=== PATIENT | male | born 1950 | race Caucasian/White ===

== ENCOUNTER 2020-10-12 08:09 | Day surgery (SDC) | payer OTHER ==
[~2020-10-12] VITALS: Ht 177.8 cm; Wt 87.0 kg
[~2020-10-12 08:09] MED LIST: ALBU90OI INH; EUTHYROX100 MCG PO; FLUT1DIS2 INH; HYDROCORTISON28.4 G4 TOP; LISI20 PO; Loratadine10 MG PO; OMEP20ER PO
[2020-10-12] MEDS ORDERED: IRON18 MG PO (11:30)
== END 2020-10-12 12:39 | disposition home or self-care (01) ==
LOC: ORSCSDS 08:09
PROVIDERS: Internal Medicine Gastroenterology
PROC: 0DB58ZX Excision of Esophagus, Via Natural or Artificial Opening Endoscopic, Diagnostic (ICD-10-PCS; principal; 2020-10-12 09:30)
PROC: 0DB78ZX Excision of Stomach, Pylorus, Via Natural or Artificial Opening Endoscopic, Diagnostic (ICD-10-PCS; principal; 2020-10-12 09:30)
DX: K22.10 Ulcer of esophagus without bleeding (principal); K22.70 Barrett's esophagus without dysplasia; K29.70 Gastritis, unspecified, without bleeding; K44.9 Diaphragmatic hernia without obstruction or gangrene; D50.0 Iron deficiency anemia secondary to blood loss (chronic); I10 Essential (primary) hypertension; J44.9 Chronic obstructive pulmonary disease, unspecified; Z87.891 Personal history of nicotine dependence; Z79.899 Other long term (current) drug therapy
CPT/HCPCS: 88305; 88313; 88342; J2704; J7120

== ENCOUNTER → 2023-08-01 | Outpatient (CLI) | payer OTHER ==
[~2023-08-01] MED LIST changes: +IRON18 MG PO
[2023-08-01 19:57] LABS: Alanine Aminotransfer (ALT/SGP 19 U/L (12-78); Albumin, Blood 3.6 g/dL (3.4-5.0); Albumin/Globulin Ratio 1.1 (0.8-1.8); Alk Phos 90 U/L (50-136); Anion Gap 6 mmol/L (6-16); Aspartate Aminotrans (AST/SGOT 22 U/L (12-37); Blood Urea Nitrogen 16 mg/dL (8-24); Bun/Creatinine Ratio 13.2 (12.0-20.0); CO2, Blood 30 mmol/L (21-32); Calcium, Blood 8.8 mg/dL (8.5-10.1); Chloride, Blood 97 mmol/L (98-108); Cholesterol 169 mg/dL (50-200); Creatinine, Blood 1.21 mg/dL (0.60-1.20); Ferritin, Serum 34 ng/mL (26-388); Free Thyroxine 1.53 ng/dL (0.70-1.60); Globulin, Blood 3.4 g/dL (2.2-4.0); Glomerular Filtration Rate 64 (60-); Glucose, Blood 99 mg/dL (70-99); HDL Cholesterol 83 mg/dL (>39); LDL/HDL RATIO 0.8; Low Density Lipoprotein Chol 69 mg/dL (0-110); Potassium, Blood 4.1 mmol/L (3.5-5.5); Sodium, Blood 133 mmol/L (136-145); Triglycerides 87 mg/dL (30-160); Very Low Density Lipoprot Chol 17 mg/dL (6-32)
[2023-08-01 20:01] LABS: Thyroid Stimulating Hormone 0.659 uIU/mL (0.360-4.800)
== END | disposition home or self-care (01) ==
LOC: LAB SHORT 18:14 → LAB 18:14
PROVIDERS: Nurse Practitioner Family
DX: I10 Essential (primary) hypertension (principal); E03.9 Hypothyroidism, unspecified; D50.9 Iron deficiency anemia, unspecified
CPT/HCPCS: 80053; 80061; 82728; 84439; 84443

== ENCOUNTER → 2024-01-15 | Outpatient (CLI) | payer OTHER | END | disposition home or self-care (01) | LOC: LAB SHORT 11:04 → LAB 11:04 | DX: L08.0 Pyoderma (principal) | CPT/HCPCS: 87070; 87077; 87147; 87186; 87205 ==

== ENCOUNTER 2024-06-17 13:29 | Observation (INO) | payer OTHER ==
[~2024-06-17] VITALS: Ht 177.8 cm; Wt 79.8 kg
[2024-06-17] MEDS ORDERED: NS 1,000 ML IV SCH ×3 (14:05→18:15)
[2024-06-17 14:08] LABS: BASOPHILS ABSOLUTE AUTO 0.09 K/mm3 (0.00-0.23); BASOPHILS PERCENT AUTO 2 % (0-2); EOSINOPHILS ABSOLUTE AUTO 0.36 K/mm3 (0.00-0.68); EOSINOPHILS PERCENT AUTO 10 % (0-6); Hematocrit 36.8 % (37.0-53.0); Hemoglobin 11.3 g/dL (13.5-17.5); IMMATURE GRAN ABSOLUTE AUTO 0.04 K/mm3 (0.00-0.10); IMMATURE GRAN PERCENT AUTO 1 % (0-1); LYMPHOCYTES PERCENT AUTO 19 % (21-46); MONOCYTES ABSOLUTE AUTO 1.13 K/mm3 (0.16-1.47); MONOCYTES PERCENT AUTO 30 % (4-13); Mean Corpuscular HGB 24.4 pg (26.0-34.0); Mean Corpuscular HGB Conc 30.7 g/dL (31.5-36.5); Mean Corpuscular Volume 80 fL (80-100); Mean Platelet Volume 10.2 fL (9.1-12.4); NEUTROPHILS ABSOLUTE AUTO 1.42 K/mm3 (1.96-9.15); NEUTROPHILS PERCENT AUTO 38 % (41-73); Platelet Count 279 K/mm3 (150-400); RDW Coefficient Variation 17.1 % (11.7-14.2); RDW Standard Deviation 49.5 fL (35.1-46.3); Red Blood Cell Count 4.63 M/mm3 (4.30-5.90); White Blood Cell Count 3.74 K/mm3 (4.00-11.30)
[2024-06-17 14:24] LABS: Albumin, Blood 4.1 g/dL (3.4-5.0); Albumin/Globulin Ratio 1.1 (0.8-1.8); Bilirubin, Total 1.4 mg/dL (0.1-1.0); Bun/Creatinine Ratio 15.5 (12.0-20.0); Calcium, Blood 9.4 mg/dL (8.5-10.1); Creatinine, Blood 1.74 mg/dL (0.60-1.20); Globulin, Blood 3.8 g/dL (2.2-4.0); Magnesium, Blood 1.7 mg/dL (1.6-2.4); Potassium, Blood 4.4 mmol/L (3.5-5.5); Total Protein, Blood 7.9 g/dL (6.4-8.2)
[2024-06-17] MEDS ORDERED: WIXELA 100-501 EAC1 IH (14:41)
[2024-06-17] MEDS ORDERED: LEVOTHYROXINE112 M18 PO (14:41)
[2024-06-17] MEDS ORDERED: LISINOPRIL-HCT1 EACH PO (14:42)
[2024-06-17] MEDS ORDERED: Aspirin 81 MG Chew PO ONE (17:00)
[2024-06-17] MEDS ORDERED: Albuterol 2.5 MG/3 ML VIAL INH PRN (18:20)
[2024-06-17] MEDS ORDERED: FLU VACC TS2024-25(6MOS UP)/PF 45 MCG/0.5 ML SYRINGE IM ONE (18:20)
[2024-06-17] MEDS ORDERED: NS 1,000 ML IV ONE (18:24)
[2024-06-17] MEDS ORDERED: Mometasone/Formoterol MDI 100/5 mcg 13 GM INH SCH (18:30)
[2024-06-17 19:17] LABS: Source, Urine Clean Catch
[2024-06-17 19:31] LABS: Appearance, Urine Clear (Clear); Bilirubin, Urine Neg (Neg); Blood, Urine 1+ (Neg); Color, Urine Yellow (P-Yellow); Glucose Qualitative, Urine Neg (Neg); Ketones, Urine Neg (Neg); Leukocyte Esterase, Urine Neg (Neg); Nitrite, Urine Neg (Neg); Protein, Urine 2+ (Neg); Urobilinogen, Urine NORM (Normal)
[2024-06-17 19:43] LABS: Bacteria Rare /hpf; Red Blood Cells, Urine 0-2 /hpf (0-2); Squamous Epithelial Cells Not Seen /hpf (Few); White Blood Cells, Urine 0-2 /hpf (0-5)
[2024-06-17 21:08] VITALS: BP 168/100
[2024-06-18 04:24] VITALS: BP 166/91
[2024-06-18 04:49] LABS: BASOPHILS ABSOLUTE AUTO 0.09 K/mm3 (0.00-0.23); BASOPHILS PERCENT AUTO 3 % (0-2); EOSINOPHILS ABSOLUTE AUTO 0.37 K/mm3 (0.00-0.68); EOSINOPHILS PERCENT AUTO 13 % (0-6); Hematocrit 30.2 % (37.0-53.0); Hemoglobin 9.3 g/dL (13.5-17.5); IMMATURE GRAN ABSOLUTE AUTO 0.01 K/mm3 (0.00-0.10); IMMATURE GRAN PERCENT AUTO 0 % (0-1); LYMPHOCYTES ABSOLUTE AUTO 0.74 K/mm3 (0.84-5.20); LYMPHOCYTES PERCENT AUTO 26 % (21-46); MONOCYTES ABSOLUTE AUTO 0.74 K/mm3 (0.16-1.47); MONOCYTES PERCENT AUTO 26 % (4-13); Mean Corpuscular HGB 24.6 pg (26.0-34.0); Mean Corpuscular HGB Conc 30.8 g/dL (31.5-36.5); Mean Corpuscular Volume 80 fL (80-100); Mean Platelet Volume 10.1 fL (9.1-12.4); NEUTROPHILS PERCENT AUTO 31 % (41-73); Platelet Count 216 K/mm3 (150-400); RDW Standard Deviation 48.9 fL (35.1-46.3); Red Blood Cell Count 3.78 M/mm3 (4.30-5.90); White Blood Cell Count 2.85 K/mm3 (4.00-11.30)
[2024-06-18 05:04] LABS: Bun/Creatinine Ratio 19.2 (12.0-20.0); Calcium, Blood 8.3 mg/dL (8.5-10.1); Creatinine, Blood 1.25 mg/dL (0.60-1.20); Magnesium, Blood 1.3 mg/dL (1.6-2.4); Potassium, Blood 4.1 mmol/L (3.5-5.5)
--- NOTE | 2024-06-18 05:12 | NUR ---
MECHANIC'S ASSISTANT SUMMARY PT HAS HAD NO DIZZINESS SINCE ADMISSION FROM ER. HE SAYS HE DRINKS "A COUPLE DRINKS" EVERY NIGHT BEFORE BED (ALCOHOLIC DRINKS) AND IS NOT GOOD ABOUT DRINKING WATER DURING THE DAY. HE ALSO TAKES A DIURETIC AT HOME. HE SAYS HE WAS HARDLY MAKING ANY URINE AT HOME. SINCE RECEIVING IVF HE IS MAKING PLENTY OF LIGHT URINE.
[2024-06-18 05:16] LABS: BAND PERCENT MAN 1 % (0-8); BASOPHILS ABSOLUTE MAN 0.02 K/mm3 (0.00-0.23); BASOPHILS PERCENT MAN 1 % (0-2); EOSINOPHILS ABSOLUTE MAN 0.48 K/mm3 (0.00-0.68); EOSINOPHILS PERCENT MAN 17 % (0-6); LYMPHOCYTES % ATYPICAL MANUAL 2 % (0-0); LYMPHOCYTES ABSOLUTE MAN 0.88 K/mm3 (0.84-5.20); LYMPHOCYTES PERCENT MAN 29 % (21-46); MONOCYTES ABSOLUTE MAN 0.62 K/mm3 (0.16-1.47); MONOCYTES PERCENT MAN 22 % (4-13); NEUTROPHILS ABSOLUTE MAN 0.82 K/mm3 (1.96-9.15); SEG NEUTROPHILS PERCENT MAN 28 % (41-73); TOTAL CELLS COUNTED 100
[2024-06-18] MEDS ORDERED: Levothyroxine Sodium 0.112 MG Tab PO SCH (06:00)
[2024-06-18] MEDS ORDERED: Omeprazole 20 MG CapCR PO SCH (07:30)
[2024-06-18 07:39] VITALS: BP 179/98
[2024-06-18] MEDS ORDERED: Mag Sulfate 1 GM/D5% 100ML 100 ML IV STA (08:00)
[2024-06-18] MEDS ORDERED: AmLODIPine Besylate 5 MG Tab PO SCH (09:00)
[2024-06-18] MEDS ORDERED: Heparin Sodium,Porcine 5,000 UNIT/0.5 ML SDV SC SCH (09:00)
--- NOTE | 2024-06-18 09:21 | NUR ---
CALL FROM TELEMETRY; PT TACHED TO 170. THIS RN TO ROOM; NO ACTIVITY AT THE TIME. RADIAL PULSE 76.
[2024-06-18] MEDS ORDERED: Metoprolol Succinate 25 MG TABCR PO SCH (12:00)
[2024-06-18] MEDS ORDERED: Metoprolol Tartrate 25 MG Tab PO SCH (12:00)
[2024-06-18 12:30] LABS: Thyroid Stimulating Hormone 1.26 uIU/mL (0.360-4.800); Thyroxine (T4) 9.2 ug/dL (4.5-12.1)
--- NOTE | 2024-06-18 12:32 | NUR ---
SPOKE WITH [facility]; SOMEONE WILL BE HERE TO APPLY ZIO PATCH IN NEXT 20 MINUTES.
[2024-06-18] MEDS ORDERED: LISI20 PO (12:57)
[2024-06-18] MEDS ORDERED: 1/2 NS 250ml250 ML (12:58)
[2024-06-18] MEDS ORDERED: MAGNESIUM OXID500 MG PO (12:58)
[2024-06-18] MEDS ORDERED: METO25ER PO (12:58)
[2024-06-18 13:34] VITALS: BP 147/82
--- NOTE | 2024-06-18 17:15 | NUR ---
DISCHARGE/SHIFT SUMMARY: A&Ox4. PLEASANT AND COOPERATIVE WITH CARE. CALLS APPROPRIATELY AND IS ABLE TO ADVOCATE NEEDS EFFECTIVELY. AMBULATES WITH SBA WITHIN ROOM FOR LINE MANAGEMENT; INDEPENDENT AT BASELINE. CONTINENT OF BOWEL AND BLADDER. LBM 06/17/24. MEDS WHOLE WITH FLUIDS. TELE SINUS TACH WITH SUSTAINED EPISODE IN 170s DURING WHICH HE DENIES HAVING MADE ANY SIGNIFICANT MOVEMENTS. NO C/O PAIN OR DISCOMFORT. IV REMOVED BY THIS RN. ZIO PATCH APPLIED BY [facility]. INSTRUCTIONS TO FOLLOW-UP WITH PCP AND CARDIOLOGY. PATIENT SELF-AMBULATED FROM FLOOR WITH ALL BELONGINGS AND DISCHARGE PACKET AT 1345.
[2024-06-22 17:50] LABS: ALBUMIN 3.63 g/dL (3.75-5.01); BETA GLOBULIN 0.92 g/dL (0.48-1.10); GAMMA 0.76 g/dL (0.62-1.51); IMMUNOFIXATION REFLEX Not Done; TOTAL PROTEIN,SERUM 6.2 g/dL (6.3-8.2)
== END 2024-06-18 14:14 | disposition home or self-care (01) ==
LOC: ER 13:29 → MEDS 13:30 → ENPENDDIS 06-18 11:56 → MEDS 06-18 14:14
PROVIDERS: Internal Medicine; Nurse Practitioner Acute Care; Physician Assistant; ADMIT Internal Medicine
DX: N17.9 Acute kidney failure, unspecified (principal); R79.89 Other specified abnormal findings of blood chemistry; I10 Essential (primary) hypertension; E03.9 Hypothyroidism, unspecified; K21.9 Gastro-esophageal reflux disease without esophagitis; J45.909 Unspecified asthma, uncomplicated; K22.70 Barrett's esophagus without dysplasia; Z79.890 Hormone replacement therapy; Z79.899 Other long term (current) drug therapy
CPT/HCPCS: 36415; 51798; 71045; 76770; 80048; 80053; 81001; 82784; 83521; 83735; 84155; 84165; 84436; 84443; 84484; 85025; 85379; 86334; 93005; 93010; 93246; 94760; 96360; 96361; 96365; 96372; 99285-25; A9270; G0378; J1644; J3475; J7030

== ENCOUNTER → 2024-06-29 | Outpatient (CLI) | payer OTHER ==
[~2024-06-29] MED LIST changes: +1/2 NS 250ml250 ML; +LEVOTHYROXINE112 M18 PO; +LISINOPRIL-HCT1 EACH PO; +MAGNESIUM OXID500 MG PO; +METO25ER PO; +WIXELA 100-501 EAC1 IH
[2024-06-29 17:40] LABS: BASOPHILS ABSOLUTE AUTO 0.07 K/mm3 (0.00-0.23); BASOPHILS PERCENT AUTO 2 % (0-2); EOSINOPHILS PERCENT AUTO 8 % (0-6); Hematocrit 32.7 % (37.0-53.0); IMMATURE GRAN ABSOLUTE AUTO 0.02 K/mm3 (0.00-0.10); IMMATURE GRAN PERCENT AUTO 1 % (0-1); LYMPHOCYTES ABSOLUTE AUTO 0.58 K/mm3 (0.84-5.20); LYMPHOCYTES PERCENT AUTO 16 % (21-46); MONOCYTES ABSOLUTE AUTO 1.12 K/mm3 (0.16-1.47); MONOCYTES PERCENT AUTO 30 % (4-13); Mean Corpuscular HGB Conc 30.6 g/dL (31.5-36.5); Mean Corpuscular Volume 78 fL (80-100); Mean Platelet Volume 10.8 fL (9.1-12.4); NEUTROPHILS ABSOLUTE AUTO 1.66 K/mm3 (1.96-9.15); NEUTROPHILS PERCENT AUTO 44 % (41-73); Platelet Count 274 K/mm3 (150-400); RDW Coefficient Variation 16.7 % (11.7-14.2); RDW Standard Deviation 47.9 fL (35.1-46.3); Red Blood Cell Count 4.17 M/mm3 (4.30-5.90); White Blood Cell Count 3.75 K/mm3 (4.00-11.30)
[2024-06-29 21:16] LABS: Albumin, Blood 3.7 g/dL (3.4-5.0); Albumin/Globulin Ratio 1.1 (0.8-1.8); Bun/Creatinine Ratio 22.5 (12.0-20.0); Calcium, Blood 8.9 mg/dL (8.5-10.1); Creatinine, Blood 1.02 mg/dL (0.60-1.20); Globulin, Blood 3.5 g/dL (2.2-4.0); Magnesium, Blood 1.8 mg/dL (1.6-2.4); Percent Saturation 5.6 % (20.0-50.0); Total Protein, Blood 7.2 g/dL (6.4-8.2)
== END | disposition home or self-care (01) ==
LOC: LAB SHORT 16:54 → LAB 16:54
PROVIDERS: Nurse Practitioner Family
DX: N17.9 Acute kidney failure, unspecified (principal); D64.9 Anemia, unspecified; E83.42 Hypomagnesemia
CPT/HCPCS: 80053; 82728; 83540; 83550; 83735; 85025

== ENCOUNTER → 2025-08-12 | Outpatient (CLI) | payer OTHER ==
[2025-08-12 19:06] LABS: Thyroid Stimulating Hormone 4.23 uIU/mL (0.360-4.800)
== END ==
LOC: LAB SHORT 15:59 → LAB 15:59
PROVIDERS: Nurse Practitioner Family
DX: E03.9 Hypothyroidism, unspecified (principal)
CPT/HCPCS: 84439; 84443